=== PATIENT | female | born 1970 | race Caucasian/White ===

== ENCOUNTER → 2019-04-13 | Outpatient (CLI) | payer MEDICARE, MEDICAID ==
[~2019-04-13] MED LIST: PROHANCE 279.3MG/ML 15ML VIAL (A9576) As Ordered ONE
--- NOTE | 2019-04-13 16:20 | REP ---
Orbital/maxillofacial MRI study without and with IV gadolinium: History: Abnormal finding on MRI of the brain in the apex of the left orbit. Small extraconal left inferior orbital apical lesion seen on MRI brain from April 27, 2018. Comparison MRI studies of the orbits are from May 17, 2018 and July 17, 2018. Gadolinium enhancement dose: 15 ml of intravenous ProHance. MR technique: Axial and coronal imaging planes are utilized. T1 and T2-weighted scans were obtained with pre and postcontrast imaging. MRI findings: A small extraconal nodule is again seen in the inferomedial orbital apex on the left. This demonstrates low T1 and high T2 signal intensity and heterogeneous predominately peripheral contrast enhancement as before. It measures 8 mm in greatest diameter today as well as on the prior study by my measurement. It is felt to be unchanged. Extraocular muscles appear intact. The optic nerves are unremarkable. No other mass lesion is seen. There is no other intraorbital abnormality. There are some microvascular periventricular and subcortical white matter T2 hyperintensities on accompanying turbo spin-echo T2-weighted brain study. Impression: There is a small 8 mm stable enhancing extraconal lesion in the inferior and medial orbital apex on the left. This is unchanged from comparison MRI studies dating back to April 27, 2018. Electronically Signed by Eugenio Bob MD 04/13/2019 04:45 P
--- NOTE | 2019-04-13 16:29 | REP ---
Brain MRI study without and with IV contrast: History: Abnormal finding in the left orbital apex on prior brain MRI study. Comparison brain MRI exam is from April 27, 2018. Technique: Axial and sagittal imaging planes are utilized for T1 and T2-weighted scans. Sequences include spin-echo, fast spin echo, FLAIR, and diffusion weighted sequences. Gadolinium enhancement dose is 15 mL of intravenous ProHance. MRI findings: Bony calvarium remains intact. Craniocervical junction and upper cervical cord are unremarkable. The previously noted small extraconal orbital apex nodule on the left is again seen unchanged, 7 to 8 mm in greatest diameter. No other intraorbital abnormality is seen. There is no MR evidence of significant paranasal sinus disease. On T2-weighted and FLAIR images, there are multiple foci of T2 hyperintensity in the periventricular and subcortical white matter of the frontal and parietal lobes bilaterally . These are unchanged compared to the prior study. They are nonspecific and may represent microvascular ischemic changes versus demyelinating lesion. They can be seen in migraine patients as well. In any event, they are unchanged. Diffusion weighted scans show no evidence to suggest acute ischemia. There is no evidence of intracranial hemorrhage. No mass, infarction, or midline shift is seen. Impression: Stable periventricular and subcortical white matter T2 hyperintensities, unchanged from April 27, 2018. 8 mm nodule in the inferior orbital apex on the left is again noted unchanged. Electronically Signed by Eugenio Bob MD 04/13/2019 04:46 P
== END ==
LOC: M RAD 12:32
PROVIDERS: ATTEND Psychiatry & Neurology Neurology
DX: R90.89 Other abnormal findings on diagnostic imaging of central nervous system (principal)
CPT/HCPCS: 70543; 70553; A9576

== ENCOUNTER → 2023-01-20 | Outpatient (CLI) | payer MEDICAID, MEDICARE ==
[~2023-01-20] MED LIST changes: -PROHANCE 279.3MG/ML 15ML VIAL (A9576) As Ordered ONE; +PROHANCE 279.3MG/ML 15ML VIAL ONE; +PROHANCE 279.3MG/ML 5ML VIAL ONE
== END ==
LOC: M PLAIMG 12:15
PROVIDERS: ATTEND Nurse Practitioner Family
DX: R90.89 Other abnormal findings on diagnostic imaging of central nervous system (principal)
CPT/HCPCS: 70543; 70553; A9576